=== PATIENT | male | born 1955 | race Caucasian/White ===

== ENCOUNTER 2023-05-04 13:44 | Outpatient (CLI) | payer OTHER, SELFPAY | END 2023-05-04 13:45 | disposition home or self-care (01) | LOC: ANHAUDIO 13:44 | PROVIDERS: PCP Internal Medicine; Visit Provider Internal Medicine | DX: H90.3 Sensorineural hearing loss, bilateral (principal) | CPT/HCPCS: 92557; 92567 ==

== ENCOUNTER 2025-05-01 00:49 | Day surgery (SDC) | payer OTHER, SELFPAY ==
[2025-04-17 14:29] VITALS: BMI 31.2
--- OUTSIDE RECORDS SUMMARY | 2025-05-01 00:52 | XMS_ITS | Clinical Summary ---
Author Organization [facility] Address [address] [address] Phone Care Team Providers Care Sheet Sewer Name Role Phone Tru Allred DO Primary Care Provider [phone] Social History Tobacco Use Types Packs/Day Years Used Date Smoking Tobacco: Never Assessed Sex and Gender Information Value Date Recorded Sex Assigned at Not on file Legal Sex Male 8:56 PM CDT Gender Identity Not on file Sexual Orientation Not on file Plan of Treatment Health Maintenance Due Date Last Done Comments Hepatitis C Virus (HCV) Screening 1955 TdaP Immunization 1955 Cologuard 11/16/2000 Immunochemical Fecal Occult Blood 11/16/2000 Pneumococcal Immunization (5 0+ years) (1 of 1 - PCV) 11/16/2005 Zoster Immunization (1 of 2) 11/16/2005 Colonoscopy 07/19/2024 07/19/2019 Colorectal Cancer Screening 07/19/2024 Influenza Immunization (#1) 2025 SARS-COV-2 Immunization ( season) 2025 Respiratory Syncytial Virus (RSV) Immunization (Adult) (1 - 1-dose 75+ series) 11/16/2030 Hepatitis B Immunization Aged Out No longer eligible based on patient's age to complete this topic Human Papillomavirus (HPV) Immunization Aged Out No longer eligible b ased on patient's age to complete this topic Meningococcal Immunization (ACWY) Aged Out No longer eligible based on patient's age to complete this topic Rotavirus Immunization Aged Out No lo nger eligible based on patient's age to complete this topic Procedures Procedure Name Priority Date/Time Associated Diagnosis Comments HM COLONOSCOPY Routine 07/19/2019 from Last 3 Months or Most Recently Relevant to Health Maintenance Results * COLONOSCOPY (07/19/2019) Kenrick Balbuena DO PROCEDURE/MINOR SURGICAL ORDERA BLES Final Result from Last 3 Months or Most Recently Relevant to Health Maintenance Care Teams Sheet Sewer Relationship Specialty Start Date End Date Tru Allred DO [address] [place] [address] PCP - General Internal Medicine 07/24/19
--- NOTE | 2025-05-01 07:06 | P.PNAN_ITS ---
Anes - Initial Pre Proc Eval Procedure: Operation Date: 05/01/25 08:30 Proposed Procedures p Screening Colonoscopy - Alec Ren MD Date/Time: 05/01/25 07:06 Surgeon: Alec Ren MD Pre Op Diagnosis: Personal history of colon polyps, unspecified Patient Data Age: 69 Gender: M Height: 1.83 m Weight: 104.54 kg Allergies Allergy/AdvReac Type Severity Reaction Status Date / Time iodine Allergy Intermediate Hives Verified 05/01/25 07:11 iohexol (From CONTRAST - CT, Allergy Intermediate Hives Verified 05/01/25 07:11 XRAY) Penicillins AdvReac Intermediate Unknown Verified 05/01/25 07:11 Home Medications ?Medication ?Instructions ?Recorded ?Confirmed ?Type melatonin 3 mg capsule 3 mg PO HS PRN Sleep 0 04/17/25 History psyllium husk 3.4 gram/5.4 gram 1 tbsp PO DAILY 04/17/25 History oral powder (Metamucil) cetirizine 10 mg capsule (Zyrtec) 10 mg PO DAILY 01/0305/01/25 History aspirin 81 mg tablet,delayed 81 mg PO DAILY 08/01/20 1 07/01/24 History release (Adult Low Dose Aspirin) sildenafil 100 mg tablet 100 mg PO DAILY PRN sexual 0 08/01/20 04/17/25 Rx activity #10 tabs albuterol sulfate 90 mcg/actuation 2 inh inhalation Q6 H PRN shortness 07/13/23 04/17/25 Rx aerosol inhaler (ProAir HFA) of breath or wheezing #8. 5 grams azelastine 137 mcg (0.1 %) nasal 1 spray intranasal BI D 90 days #90 07/13/24 05/01/25 Rx spray mL fluticasone propionate 50 1 spray intranasal BID PRN n matthew 08/27/24 04/17/25 Rx mcg/actuation nasal congestion 90 days #54.6 mL spray,suspension atorvastatin 20 mg tablet 20 mg PO DAILY #90 tabs 08/2505/01/25 Rx montelukast 10 mg tablet See Rx Instructions .Route 0 09/20/24 05/01/25 Rx .COMPLEX #90 tabs losartan 100 mg tablet See Rx Instructions .Route 0 10/18/24 04/17/25 Rx .COMPLEX #45 tabs Advair HFA 115 mcg-21 See Rx Instructions .Route 1 04/17/25 Rx mcg/actuation aerosol inhaler .COMPLEX #12 grams (fluticasone propion-salmeterol) Patient hx anesthesia problems: none Family hx anesthesia problems: none Results Review: All pre-operative results and documents have been reviewed as part of the pre- operative evaluation. [facility] Past Medical History Medical History (Updated 10/30/24 @ 21:48 by Bogdan Russo DO) Hyperglycemia BMI 32.0-32.9,adult Vitamin D insufficiency Upper back pain Pruritic rash Other fatigue JOHNNY (obstructive sleep apnea) Muscle cramps Hypercalcemia Hx of colonic polyps Essential (primary) hypertension Encounter for screening for malignant neoplasm of prostate Elevated parathyroid hormone Dietary counseling and surveillance (07/12/17) Cervicalgia BMI 22.0-22.9, adult Sleep apnea Hx of diverticulitis of colon History of open sigmoidectomy Hx of adenomatous colonic polyps Overweight (BMI 25.0-29.9) Eczema Asthma Surgical History Surgical History Hx of colonoscopy Hx of parathyroidectomy Family History Family History Mother Patient's mother is in good health Father Acute myocardial infarction, Onset Age: 49 Grandparent Asthma Acute myocardial infarction, Onset Age: 49 Sibling Cerebrovascular accident Other Diabetes mellitus Family history of alcoholism Family history of cardiovascular disease Hypertension Social History Social History Years smoked: 30 Smoking status: Former smoker Tobacco type: cigarettes Second hand tobacco smoke exposure: No Smoking end date: 06/27/01 Alcohol intake: current Drinks per week: 42 Substance use: never Substance use type: does not use Do You Feel Safe in your Home?: Yes Lack of Transportation: No Lack of Food: Never True Current Housing: I Have Housing Concerned About Future Housing: No Difficulty Paying Gas/Electric Bills: No Difficulty Paying for Meds: No Currently Unemployed: No Education: High School Diploma/GED Difficulty w/ Childcare or Family Care: No Living arrangements: with family Occupation/Education: retired 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 Informed Consent: The patient's anesthetic plan and its attendant risks and benefits were discussed with the patient/family/POA. Questions were solicited and answers provided to the satisfaction of the patient/family/POA.
[2025-05-01 07:14] VITALS: BP 144/96; PULSE 71; RESP 18; TEMP 36.1; O2SAT 100; BMI 30.2
[2025-05-01] MEDS: LACTATED RINGERS 1,000 ML 150 ML IV CONT (07:17)
--- NOTE | 2025-05-01 08:34 | P.HP_ITS ---
H&P: HPI History of Present Illness Date/Time: 05/01/25 08:34 Chief Complaint: Screening colonoscopy Narrative: This is the patient's 2nd colonoscopy. There are no GI symptoms and there is no family history of colorectal cancer. He underwent a sigmoid resection for stricture associated with diverticulitis in 2006. Review of Systems Review of Systems: All systems reviewed & are unremarkable except as noted in HPI and below PMFSH Past Medical History Medical History (Updated 10/30/24 @ 21:48 by Bogdan Russo DO) Hyperglycemia BMI 32.0-32.9,adult Vitamin D insufficiency Upper back pain Pruritic rash Other fatigue JOHNNY (obstructive sleep apnea) Muscle cramps Hypercalcemia Hx of colonic polyps Essential (primary) hypertension Encounter for screening for malignant neoplasm of prostate Elevated parathyroid hormone Dietary counseling and surveillance (07/12/17) Cervicalgia BMI 22.0-22.9, adult Sleep apnea Hx of diverticulitis of colon History of open sigmoidectomy Hx of adenomatous colonic polyps Overweight (BMI 25.0-29.9) Eczema Asthma Surgical History Surgical History Hx of colonoscopy Hx of parathyroidectomy Family History Family History Mother Patient's mother is in good health Father Acute myocardial infarction, Onset Age: 49 Grandparent Asthma Acute myocardial infarction, Onset Age: 49 Sibling Cerebrovascular accident Other Diabetes mellitus Family history of alcoholism Family history of cardiovascular disease Hypertension Social History Social History Years smoked: 30 Smoking status: Former smoker Tobacco type: cigarettes Second hand tobacco smoke exposure: No Smoking end date: 06/27/01 Alcohol intake: current Drinks per week: 42 Substance use: never Substance use type: does not use Do You Feel Safe in your Home?: Yes Lack of Transportation: No Lack of Food: Never True Current Housing: I Have Housing Concerned About Future Housing: No Difficulty Paying Gas/Electric Bills: No Difficulty Paying for Meds: No Currently Unemployed: No Education: High School Diploma/GED Difficulty w/ Childcare or Family Care: No Living arrangements: with family Occupation/Education: retired 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 Gender identity (if verbalized by the patient): Male Spiritual care concerns: No Meds Home Medications and Allergies Home Medications ?Medication ?Instructions ?Recorded ?Confirmed ?Type melatonin 3 mg capsule 3 mg PO HS PRN Sleep 0 04/17/25 History psyllium husk 3.4 gram/5.4 gram 1 tbsp PO DAILY 04/17/25 History oral powder (Metamucil) cetirizine 10 mg capsule (Zyrtec) 10 mg PO DAILY 01/0305/01/25 History aspirin 81 mg tablet,delayed 81 mg PO DAILY 08/01/20 1 07/01/24 History release (Adult Low Dose Aspirin) sildenafil 100 mg tablet 100 mg PO DAILY PRN sexual 0 08/01/20 04/17/25 Rx activity #10 tabs albuterol sulfate 90 mcg/actuation 2 inh inhalation Q6 H PRN shortness 07/13/23 04/17/25 Rx aerosol inhaler (ProAir HFA) of breath or wheezing #8. 5 grams azelastine 137 mcg (0.1 %) nasal 1 spray intranasal BI D 90 days #90 07/13/24 05/01/25 Rx spray mL fluticasone propionate 50 1 spray intranasal BID PRN n matthew 08/27/24 04/17/25 Rx mcg/actuation nasal congestion 90 days #54.6 mL spray,suspension atorvastatin 20 mg tablet 20 mg PO DAILY #90 tabs 08/2505/01/25 Rx montelukast 10 mg tablet See Rx Instructions .Route 0 09/20/24 05/01/25 Rx .COMPLEX #90 tabs losartan 100 mg tablet See Rx Instructions .Route 0 10/18/24 04/17/25 Rx .COMPLEX #45 tabs Advair HFA 115 mcg-21 See Rx Instructions .Route 1 04/17/25 Rx mcg/actuation aerosol inhaler .COMPLEX #12 grams (fluticasone propion-salmeterol) Allergies Allergy/AdvReac Type Severity Reaction Status Date / Time iodine Allergy Intermediate Hives Verified 05/01/25 07:11 iohexol (From CONTRAST - CT, Allergy Intermediate Hives Verified 05/01/25 07:11 XRAY) Penicillins AdvReac Intermediate Unknown Verified 05/01/25 07:11 Vital Signs Vital Signs - 24 hr 05/01/25 07:14 Temperature 97.0 F L Pulse Rate 71 Respiratory Rate 18 Blood Pressure 144/96 H Pulse Oximetry 100 Oxygen Delivery Room Air Exam Const: General: cooperative and healthy appearing Resp: Effort & Inspection: normal respiratory effort and able to speak in complete sentences Auscultation: clear to auscultation bilaterally Cardio: Rate: regular rate Rhythm: regular rhythm GI: Inspection: normal to inspection GI Palp: No No hepatosplenomegaly present Auscultation: normal bowel sounds Rectal Exam: deferred Skin: General skin exam: normal color Psych: Appearance: grossly normal Mental Status: mental status grossly normal Assessment and Plan Assessment and plan (1) Hx of adenomatous colonic polyps: Code(s): Z86.010 - Personal history of colon polyps Status: Acute Assessment and Plan: The patient is deemed a good candidate for the procedure. Consent signed. Will proceed.
[2025-05-01 09:02] VITALS: BP 96/47; PULSE 67; RESP 18; O2SAT 98
[2025-05-01 09:12] VITALS: BP 116/51; PULSE 58; RESP 20; O2SAT 100
[2025-05-01 09:22] VITALS: BP 110/82; PULSE 61; RESP 22; O2SAT 100
== END 2025-05-01 09:30 | disposition home or self-care (01) ==
PROVIDERS: PCP Internal Medicine; Visit Provider Internal Medicine Gastroenterology
PROC: 0DJD8ZZ Inspection of Lower Intestinal Tract, Via Natural or Artificial Opening Endoscopic (ICD-10-PCS; CPT 45378; principal; 2025-05-01 08:30)
DX: Z12.11 Encounter for screening for malignant neoplasm of colon (principal); I10 Essential (primary) hypertension; G47.33 Obstructive sleep apnea (adult) (pediatric); E21.3 Hyperparathyroidism, unspecified; J45.909 Unspecified asthma, uncomplicated; R73.9 Hyperglycemia, unspecified; E55.9 Vitamin D deficiency, unspecified; R53.83 Other fatigue; R25.2 Cramp and spasm; L30.9 Dermatitis, unspecified; E66.9 Obesity, unspecified; Z68.30 Body mass index [BMI] 30.0-30.9, adult; Z79.82 Long term (current) use of aspirin; Z79.51 Long term (current) use of inhaled steroids; Z98.890 Other specified postprocedural states; Z86.0100 Personal history of colon polyps, unspecified; Z87.891 Personal history of nicotine dependence; Z87.19 Personal history of other diseases of the digestive system; Z82.49 Family history of ischemic heart disease and other diseases of the circulatory system
CPT/HCPCS: G0105; J2704; J7120